=== PATIENT | male | born 1960 | race Caucasian/White ===

== ENCOUNTER 2019-02-22 05:20 | Day surgery (SDC) | payer BC ==
[2019-02-22] VITALS (11 sets, daily range): BP systolic 92–136; BP diastolic 49–81; PULSE 49–67; TEMP 97.7–98.8
[~2019-02-22] VITALS: Ht 177.8 cm; Wt 85.4 kg
[~2019-02-22 05:20] MED LIST: BENADRYL50 MG PO; CENTRUM SILVER1 TAB PO; CRANBERRY450 MG PO; IBU400 MG PO; NATURAL SAW PA160 MG PO; NORCO 325 MG-51 TAB PO
[2019-02-22] MEDS ORDERED: ALEVE 220MG220 MG PO (06:14)
[2019-02-22] MEDS ORDERED: BENADRYL25 M2 PO (06:15)
[2019-02-22] MEDS ORDERED: NATURAL MAGNES200 MG PO (06:16)
[2019-02-22] MEDS ORDERED: MASON NATURAL1200 MG PO (06:17)
[2019-02-22] MEDS ORDERED: GLUCOSAMINE & C1 CA1 PO (06:19)
--- NOTE | 2019-02-22 06:20 | NUR ---
TO RM 8 AT 0534- CALL LIGHT IN REACH AT BEDSIDE.
--- NOTE | 2019-02-22 10:10 | NUR ---
Patient up to room 347 from OR. Alert and oriented x 3. Patient and spouse oriented to room. CBI infusing at a moderate rate. Urine clear. Post op fluids infusing to left forarm IV. Complaining of continued bladder spasms.
--- NOTE | 2019-02-22 17:19 | NUR ---
Pt resting comfortably with no complaints. Reported off to PATRIZIA Gonzalez.
--- NOTE | 2019-02-22 18:30 | NUR ---
Patient has done well throughout the day. Irrigated patient once this shift due to clotting. CBI continues to infuse at a moderate rate to maintin urine dark pink color. Patient continues to deny pain. States he hasnt had any additional spasms this afternoon. Tolerating diet without difficulties. Denies further needs at this time. Will report off to irrigation flume layer.
--- NOTE | 2019-02-22 20:00 | NUR ---
Report received. Assumed care for director of student aid. A&Ox3. Resting in bed watching TV. Denies pain, nausea or shortness of breath. Tolerating PO. States "after removing the blockage I cant even tell there is a tube there." Plan of care discussed for CBI through director of student aid with possible prime and pull in AM. Verbalizes understanding. Output currently reddish-no clots-CBI at a moderate rate. Denies needs. Instructed to call for increased pain. Verbalizes understanding. Call light in reach. Bed in low position/wheels locked. Will monitor.
[2019-02-23] VITALS: BP 96/50; PULSE 68; TEMP 98.2
--- NOTE | 2019-02-23 | NUR ---
Resting in bed-eyes closed. CBI continues to be light red/pink in color-running at a moderate rate-no clots noted. No s/s of pain noted.
[2019-02-23 04:00] VITALS: BP 100/57; PULSE 63; TEMP 97.9
--- NOTE | 2019-02-23 05:30 | NUR ---
CBI maintained a light pink color without clots this shift-running at a slow to moderate rate. Primed with 400mls of NS and DCd. Tolerated well. Teaching complete on 6 cup routine. States the last CBI he had he passed out on toilet trying to urinate. Instructed to call for staff to be present first time up. Verbalizes understanding. Call light in reach. Will monitor.
--- NOTE | 2019-02-23 08:00 | NUR ---
Drinking water in large quantities. Voiding khan red urine with clots. Denies pain. Independent in room.
[2019-02-23 08:39] VITALS: BP 119/63; PULSE 72; TEMP 98.5
--- NOTE | 2019-02-23 10:30 | NUR ---
Voiding light red urine without clots. No complaints.
--- NOTE | 2019-02-23 11:02 | NUR ---
ERNESTINA met with the patient and the patient's , Bettina ([phone]), to discuss discharge plan. The patient [place] of [place] with his . He reports independence with ADLs and does not have any DME. THe patient's PCP is Dr. Joseph Rawls in [place] and he receives his medications at [facility]. He reports no difficulties obtaining his meds. The patient does not have advanced directives in EMR, but he states that he does have them completed. He states that his is his DPOA-HC. The patient plans to return home with his upon discharge. No additional needs at this time.
--- NOTE | 2019-02-23 12:00 | NUR ---
TURP instructions given. Dismissed to home with spouse.
--- NOTE | 2019-02-23 12:01 | NUR ---
[employer] offered a pray with patient while spouse was in room. Patient was gettingready to be discharged.
== END 2019-02-23 12:00 | disposition home or self-care (01) ==
LOC: SDCO 05:20 → SURG 10:46 → SDCO 02-23 12:00
DX: N21.0 Calculus in bladder (principal); N40.1 Benign prostatic hyperplasia with lower urinary tract symptoms; M19.90 Unspecified osteoarthritis, unspecified site; Z87.891 Personal history of nicotine dependence; Z88.1 Allergy status to other antibiotic agents; Z80.1 Family history of malignant neoplasm of trachea, bronchus and lung; Z82.3 Family history of stroke; Z80.0 Family history of malignant neoplasm of digestive organs; Z88.2 Allergy status to sulfonamides
CPT/HCPCS: OP; J0690; J1100; J1885; J2405; J2704; J3010; J7120

== ENCOUNTER 2020-04-07 13:05 | Day surgery (SDC) | payer BC ==
[~2020-04-07] VITALS: Ht 180.3 cm; Wt 81.2 kg
[~2020-04-07 13:05] MED LIST changes: +ALEVE 220MG220 MG PO; +BENADRYL25 M2 PO; +GLUCOSAMINE & C1 CA1 PO; +MASON NATURAL1200 MG PO; +NATURAL MAGNES200 MG PO
[2020-04-07] MEDS ORDERED: AVODART 0.5MG0.5 MG PO (14:28)
[2020-04-07] MEDS ORDERED: CIPRO 250MG TA250 MG PO (14:28)
[2020-04-07] MEDS ORDERED: FLOMAX 0.40.4 MG/CAP PO (14:28)
[2020-04-07] MEDS ORDERED: HYGROTON 2525 MG/TAB PO (14:29)
[2020-04-07 18:00] VITALS: BP 136/66; PULSE 57; TEMP 98
[2020-04-07 18:15] VITALS: BP 114/71; PULSE 57
[2020-04-07 18:30] VITALS: BP 119/83; PULSE 62
[2020-04-07 18:45] VITALS: BP 114/69; PULSE 56
--- NOTE | 2020-04-07 18:45 | NUR ---
Patient got back from surgery at 1800. He is alert and oriented. Denies pain and nausea. Rangel secured to leg, urine radha and a little cloudy. Discussed discharge plan. Vital signs stable. Oriented patient to room. No other changes at this time. Call light within reach.
[2020-04-07 19:15] VITALS: BP 106/69; PULSE 61; TEMP 98
--- NOTE | 2020-04-07 19:43 | NUR ---
Discharge instructions reviewed with patient. Leg bag obtained for colindres catheter. Home care reviewed. Denies other needs. All questions answered.
--- NOTE | 2020-04-07 21:11 | NUR ---
Patient taken via wheel chair to ED entrance by SLICE CUTTING MACHINE OPERATOR. All questions answered. Sent home with leg bag, teach complete and education packets set with patient.
== END 2020-04-07 21:14 | disposition home or self-care (01) ==
LOC: SDCO 13:05 → SURG 17:45 → SDCO 21:14
DX: N21.1 Calculus in urethra (principal); N21.0 Calculus in bladder; N42.0 Calculus of prostate; N40.1 Benign prostatic hyperplasia with lower urinary tract symptoms; R39.14 Feeling of incomplete bladder emptying; R39.12 Poor urinary stream; R82.994 Hypercalciuria; Z20.828 Contact with and (suspected) exposure to other viral communicable diseases; Z79.2 Long term (current) use of antibiotics; Z79.899 Other long term (current) drug therapy; Z87.891 Personal history of nicotine dependence; Z80.0 Family history of malignant neoplasm of digestive organs; Z80.1 Family history of malignant neoplasm of trachea, bronchus and lung
CPT/HCPCS: OP; C1769; J0690; J1100; J2405; J2704; J3010; J7120